=== PATIENT | female | born 1945 | race Caucasian/White ===

== ENCOUNTER 2016-08-12 02:04 | Emergency (ER) | payer MEDICARE, OTHER ==
[~2016-08-12] VITALS: Ht 167.6 cm; Wt 90.1 kg
[~2016-08-12 02:04] MED LIST: ASPI-917 PO; BACL10TA PO; CLID1CAP PO; ESOM20CA PO; HYDR-4074 PO; HYDR1TAB73 PO; LORA-204 PO; METO50TA5 PO; POLY17PO18 PO; PROP28DR BOTH EYES
[2016-08-12 02:05] VITALS: Ht 167.6 cm; Wt 90.1 kg
--- OUTSIDE RECORDS SUMMARY | 2016-08-12 02:09 | XMS REPORT | Referral Summary ---
Author Author [facility] Organization [facility] Address Unknown Phone Unavailable Care Team Providers Care Bit Grinder Name Role Phone Phoebe Lugo Primary Care Physician [phone] Encounter VC Date(s): 02/17/16 - 02/17/16 [facility] [address] [place] [address] Discharge Disposition: 01-Home or Self Care Attending Physician: Kostas Tuttle DO Admitting Physician: Kostas Tuttle DO Vital Signs Most recent to 1 oldest [Reference Range]: Temperature Oral 37.0 degC [35.8-37.3 degC] (02/17/16 3:13 PM) Peripheral Pulse 84 bpm Rate [60-100 bpm] (02/17/16 3:13 PM) Respiratory Rate 12 br/min [14-20 br/min] *LOW* (02/17/16 3:13 PM) Blood Pressure 157/65 mmHg [90-140/60-90 mmHg] *HI* (02/17/16 3:13 PM) SpO2 94 % (02/17/16 3:13 PM) Problem List Condition Effective Dates Status Health Status Informant Arthritis(Confirmed) Active Benign essential Active hypertension (disorder)(Confirmed ) Bleeding(Confirmed) 1997 Active Cataract, Active senile(Confirmed) Osteoarthrosis(Confi Active rmed) 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 ) Dry eyes(Confirmed) Active Eczema(Confirmed) Active Gastroesophageal Active reflux disease (disorder)(Confirmed ) Hemorrhoids(Confirme Active d) Prediabetes(Confirme Active d) Irritable bowel Active disease(Confirmed) Metaplasia of Active esophagus(Confirmed) Obesity(Confirmed) Active patient Tear film Active insufficiency (disorder)(Confirmed ) Frequent Active PVCs(Confirmed) Allergies, Adverse Reactions, Alerts Substance Reaction Severity Status aspirin Discomfort Medium Active Adverse Reaction codeine Active ibuprofen Active Keflex body aches Medium Active levofloxacin Active sulfamethoxazole Adverse Reaction Medium Active sulfanilamide topical Nausea Active Medications baclofen 10 mg oral tablet 10 mg 1 tabs, Oral, TID, 0 Refill(s) Start Date: 11/06/15 Status: Ordered Carafate 1 g oral tablet 1 g 1 tabs, Oral, QID, # 120 tabs, 0 Refill(s) Start Date: 01/21/16 Status: Ordered chlordiazePOXIDE-clidinium 5 mg-2.5 mg oral capsule See Instructions, TAKE ONE CAPSULE BY MOUTH EVERY 6 HOURS NEEDED, # 30 caps, 11 Refill(s), called to pharmacy (Rx) Start Date: 08/13/15 Status: Ordered HYDROcodone-acetaminophen 5 mg-325 mg oral tablet 1-2 tabs, Oral, q6hr, as needed for pain, # 30 tabs, 0 Refill(s) Start Date: 02/04/16 Status: Ordered metoprolol tartrate 50 mg oral tablet 50 mg 1 tabs, Oral, Daily, PT. MONITORS B/P PRIOR TO TAKING., # 30 tabs, 6 Refill(s), Pharmacy: [facility] #[id number] Start Date: 05/17/15 Status: Ordered NexIUM 20 mg oral delayed release capsule 20 mg 1 caps, Oral, BID, GERD/Heartburn, # 30 caps, 0 Refill(s) Start Date: 09/14/14 Status: Ordered triamcinolone 0.1% topical cream 1 cailin, Topical, TID, rash/itching, # 60 g, 1 Refill(s), Pharmacy: [facility] #[id number] Start Date: 06/19/15 Status: Ordered Results Hematology Most recent to 1 oldest [Reference Range]: WBC [4.8-10.8 10.3 10*3/uL 10*3/uL] (02/17/16 3:26 PM) RBC [4.00-5.20] 3.98 *LOW* (02/17/16 3:26 PM) Hgb [12.0-16.0 11.7 gm/dL gm/dL] *LOW* (02/17/16 3:26 PM) Hct [37.0-47.0 %] 34.5 % *LOW* (02/17/16 3:26 PM) MCV [82.0-99.0 fL] 86.7 fL (02/17/16 3:26 PM) MCH [27.0-32.0 pg] 29.4 pg (02/17/16 3:26 PM) MCHC [32.0-36.0 33.9 gm/dL gm/dL] (02/17/16 3:26 PM) RDW [11.5-14.5 %] 12.4 % (02/17/16 3:26 PM) Platelet [150-400 327 10*3/uL 10*3/uL] (02/17/16 3:26 PM) MPV [9.4-12.4 fL] 9.5 fL (02/17/16 3:26 PM) Immature 0.2 % Granulocytes (02/17/16 3:26 PM) [0.0-1.0 %] Neutrophils [51-75 69 % %] (02/17/16 3:26 PM) Lymphocytes [20-46 15 % %] *LOW* (02/17/16 3:26 PM) Monocytes [4-11 %] 14 % *HI* (02/17/16 3:26 PM) Eosinophils [0-4 %] 2 % (02/17/16 3:26 PM) Basophils [0-2 %] 0 % (02/17/16 3:26 PM) Neutro Absolute 7.06 10*3 [1.90-7.00 10*3] *HI* (02/17/16 3:26 PM) Lymph Absolute 1.55 10*3 [0.80-3.30 10*3] (02/17/16 3:26 PM) Mcnairy Absolute 1.45 10*3 [0.30-1.00 10*3] *HI* (02/17/16 3:26 PM) Eos Absolute 0.20 10*3 [0.00-0.50 10*3] (02/17/16 3:26 PM) Baso Absolute 0.03 10*3 [0.00-0.20 10*3] (02/17/16 3:26 PM) Chemistry Most recent to 1 oldest [Reference Range]: Sodium Lvl [136-144 136 mEq/L mEq/L] (02/17/16 3:26 PM) Potassium Lvl 3.5 mEq/L [3.6-5.1 mEq/L] *LOW* (02/17/16 3:26 PM) Chloride [99-109 99 mEq/L mEq/L] (02/17/16 3:26 PM) CO2 [22-32 mEq/L] 28 mEq/L (02/17/16 3:26 PM) AGAP [3-20] 9 (02/17/16 3:26 PM) BUN [4-20 mg/dL] 13 mg/dL (02/17/16 3:26 PM) Glucose Lvl [70-100 128 mg/dL mg/dL] *HI* (02/17/16 3:26 PM) Creatinine Lvl 0.74 mg/dL [0.44-1.03 mg/dL] (02/17/16 3:26 PM) eGFR [>60] >60 1 (02/17/16 3:26 PM) Calcium Lvl 9.0 mg/dL [8.6-10.0 mg/dL] (02/17/16 3:26 PM) Albumin Lvl [3.5-4.8 3.7 gm/dL gm/dL] (02/17/16 3:26 PM) Total Protein 6.3 gm/dL [6.1-7.9 gm/dL] (02/17/16 3:26 PM) Globulin [1.9-4.3 2.6 gm/dL gm/dL] (02/17/16 3:26 PM) ALT [14-54 U/L] 29 U/L (02/17/16 3:26 PM) AST [15-41 U/L] 25 U/L (02/17/16 3:26 PM) Alk Phos [26-104 77 U/L U/L] (02/17/16 3:26 PM) Bili Total [0.2-1.2 0.4 mg/dL 2 mg/dL] (02/17/16 3:26 PM) 1Result Comment: Multiply eGFR results by 1.21 for race. 2Result Comment: Naproxen, specifically the metabolite O-desmethylnaproxen, may cause spurious elevation in Total Bilirubin levels. Immunizations Vaccine Date Refusal Reason tetanus/diphth/pertuss (Tdap) adult/adol 01/09/06 influenza virus vaccine, inactivated 02/09/15 pneumococcal 13-valent conjugate vaccine 03/27/15 Procedures Procedure Date Related Diagnosis Body Site Esophagogastroduodenoscopy and biopsy1 12/27/15 Esophagogastroduodenoscopy and biopsy 08/22/13 Esophagogastroduodenoscopy2 2012 Esophagogastroduodenoscopy3 2011 Colonoscopy4 11/16/08 Esophagogastroduodenoscopy5 11/16/08 Esophagogastroduodenoscopy 2007 Diane fundoplication 04/20/98 Hernia repair 1998 Diane fundoplication 1998 ERIKA - Total abdominal hysterectomy and 1997 bilateral salpingo-oophorectomy Cholecystectomy-laparoscopic Hip replacement Hip replacement Knee replacement Knee replacement Laparoscopic cholecystectomy Tonsillectomy Tonsillectomy 1PATHOLOGY RESULTS SHOWING NEGATIVE FOR ADARSH ASSAY AND H PYLORI. PATIENT WAS POSITIVE FOR KEMP'S WITH OUT DYSPLASIA. TP NEEDS TO REPEAT EGD IN 3 YRS. 2DONE [id number] [facility] [place] [facility] [place] [facility] [place] [facility] [place] Social History Social History Type Response Smoking Status Former smoker Assessment and Plan No data available for this section
--- OUTSIDE RECORDS SUMMARY | 2016-08-12 02:10 | XMS REPORT | Referral Summary ---
Author Author [facility] Organization [facility] Address Unknown Phone Unavailable Care Team Providers Care Big Data Analytics Lead Name Role Phone Phoebe Lugo Primary Care Physician [phone] Encounter VC Date(s): 03/27/16 - 03/27/16 [facility] [address] [place] [address] Discharge Diagnosis: Gastroesophageal reflux disease (disorder) Discharge Diagnosis: Status post left knee replacement Discharge Diagnosis: Osteoarthrosis Discharge Diagnosis: Benign essential hypertension (disorder) Discharge Disposition: 01-Home or Self Care Attending Physician: Mumtaz Lugo MD Admitting Physician: Mumtaz Lugo MD Vital Signs Most recent to 1 oldest [Reference Range]: Temperature Tympanic 36.6 degC [36.6-38.1 degC] (03/27/16 2:33 PM) Peripheral Pulse 68 bpm Rate [60-100 bpm] (03/27/16 2:33 PM) Respiratory Rate 16 br/min [14-20 br/min] (03/27/16 2:33 PM) Blood Pressure 136/62 mmHg [90-140/60-90 mmHg] (03/27/16 2:33 PM) Problem List Condition Effective Dates Status [...] Medium Active sulfanilamide topical Nausea Active Medications chlordiazePOXIDE-clidinium 5 mg-2.5 mg oral capsule See Instructions, TAKE ONE CAPSULE BY MOUTH EVERY 6 HOURS NEEDED, # 30 caps, 11 Refill(s), called to pharmacy (Rx) Start Date: 08/13/15 Status: Ordered chlorzoxazone 500 mg oral tablet See Instructions, TAKE ONE TABLET BY MOUTH EVERY NIGHT AT BEDTIME, # 30 tabs, eRx: [facility] #[id number], TAKE ONE TABLET BY MOUTH EVERY NIGHT AT BEDTIME Start Date: 03/07/16 Status: Ordered HYDROcodone-acetaminophen 5 mg-325 mg oral tablet 1-2 tabs, Oral, q6hr, as needed for pain, # 30 tabs, 0 Refill(s) Start Date: 02/04/16 Status: Ordered metoprolol tartrate 50 mg oral tablet 50 mg 1 tabs, Oral, Daily, PT. MONITORS B/P PRIOR TO TAKING., # 30 tabs, 6 Refill(s), Pharmacy: [facility] #[id number] Start Date: 05/17/15 Status: Ordered NexIUM 20 mg oral delayed release capsule 20 mg 1 caps, Oral, BID, GERD/Heartburn, # 30 caps, 0 Refill(s) Start Date: 09/14/14 Status: Ordered Results No data available for this section Immunizations Vaccine Date Refusal Reason tetanus/diphth/pertuss (Tdap) adult/adol 01/09/06 influenza virus vaccine, inactivated1 01/21/16 influenza virus vaccine, inactivated 02/09/15 pneumococcal 13-valent conjugate vaccine 03/27/15 1Early/Late Reason: Nursing Judgment Procedures Procedure Date Related Diagnosis Body Site Arthroplasty of knee1 02/14/16 Esophagogastroduodenoscopy and biopsy2 12/27/15 Esophagogastroduodenoscopy and biopsy 08/22/13 Esophagogastroduodenoscopy3 2012 Esophagogastroduodenoscopy4 2011 Colonoscopy5 11/16/08 Esophagogastroduodenoscopy6 11/16/08 Esophagogastroduodenoscopy 2007 Diane fundoplication 04/20/98 Hernia repair 1998 Diaen fundoplication 1998 ERIKA - Total abdominal hysterectomy and 1997 bilateral salpingo-oophorectomy Cholecystectomy-laparoscopic Hip replacement Hip replacement Knee replacement Knee replacement Laparoscopic cholecystectomy Tonsillectomy Tonsillectomy 1Left total knee arthroplasty 2PATHOLOGY RESULTS SHOWING NEGATIVE FOR ADARSH ASSAY AND H PYLORI. PATIENT WAS POSITIVE FOR KEMP'S WITH OUT DYSPLASIA. TP NEEDS TO REPEAT EGD IN 3 YRS. [id number] [facility] [place] [facility] [place] [facility] [place] [facility] [place] Social History Social History Type Response Smoking Status Former smoker Assessment and Plan Extracted from: Title: Ambulatory Patient Education Author: Mumtaz uLgo MD Date: 03/27/16 Cardiovascular Hypertension Hypertension is another name for high blood pressure. High blood pressure forces your heart to work harder to pump blood. A blood pressure reading has two numbers, which includes a higher number over a lower number (example: 110/72 ). HOME CARE Have your blood pressure rechecked by your doctor. Only take medicine as told by your doctor. Follow the directions carefully. The medicine does not work as well if you skip doses. Skipping doses also puts you at risk for problems. Do not smoke. Monitor your blood pressure at home as told by your doctor. GET HELP IF: You think you are having a reaction to the medicine you are taking. You have repeat headaches or feel dizzy. You have puffiness (swelling) in your ankles. You have trouble with your vision. GET HELP RIGHT AWAY IF: You get a very bad headache and are confused. You feel weak, numb, or faint. You get chest or belly (abdominal) pain. You throw up (vomit). You cannot breathe very well. MAKE SURE YOU: Understand these instructions. Will watch your condition. Will get help right away if you are not doing well or get worse. This information is not intended to replace advice given to you by your health care provider. Make sure you discuss any questions you have with your health care provider. Document Released: 09/22/2008 Document Revised: 04/11/2014 Document Reviewed: [employer] Interactive Patient Education 2016 [employer] No follow up information was provided. Extracted from: Title: Office Visit Note Author: Mumtaz Lugo MD Date: 03/27/16 Assessment/Plan 1.Benign essential hypertension (disorder) Blood pressure is well controlled. No change in current treatment is recommended. Recheck in 3 months. Fasting lab at that time. Problems or concerns before then she'll let us now. Ordered: Office Visit Level 4 Est 62095 2.Gastroesophageal reflux disease (disorder) Chronic stable no change in current treatment. Ordered: Office Visit Level 4 Est 95003 3.Osteoarthrosis Chronic relatively stabledoing well post knee replacement no change in current treatment. Ordered: Office Visit Level 4 Est 90737 4.Status post left knee replacement Continue physical therapy and follow- up with Dr. Redmond. Ordered: Office Visit Level 4 Est 47105
--- OUTSIDE RECORDS SUMMARY | 2016-08-12 02:10 | XMS REPORT | Referral Summary ---
Author Author [facility] Organization [facility] Address Unknown Phone Unavailable Care Team Providers Care Assistant Plant Controller Name Role Phone Phoebe Lugo Primary Care Physician [phone] Encounter VC Date(s): 04/24/16 - 04/24/16 [facility] [address] [place] [address] Discharge Diagnosis: Dizziness Discharge Diagnosis: Elevated glucose Discharge Diagnosis: Benign essential hypertension (disorder) Discharge Disposition: 01-Home or Self Care Attending Physician: Mumtaz Lugo MD Admitting Physician: Mumtaz Lugo MD Vital Signs Most recent to 1 oldest [Reference Range]: Temperature Tympanic 36.3 degC [36.6-38.1 degC] *LOW* (04/24/16 9:57 AM) Peripheral Pulse 76 bpm Rate [60-100 bpm] (04/24/16 9:57 AM) Respiratory Rate 16 br/min [14-20 br/min] (04/24/16 9:57 AM) Blood Pressure 122/70 mmHg [90-140/60-90 mmHg] (04/24/16 9:57 AM) Problem List Condition Effective Dates Status Health [...] EVERY NIGHT AT BEDTIME, # 30 tabs, 1 Refill(s), eRx: [facility] #[id number], TAKE ONE TABLET BY MOUTH EVERY NIGHT AT BEDTIME Start Date: 04/08/16 Status: Ordered cinnamon 500 mg oral capsule 1,000 mg 2 caps, Oral, as needed for elevated blood sugar, # 100 caps, 0 Refill( s) Start Date: 04/24/16 Status: Ordered HYDROcodone-acetaminophen 5 mg-325 mg oral tablet 1-2 tabs, Oral, q6hr, as needed for pain, # 30 tabs, 0 Refill(s) Start Date: 02/04/16 Status: Ordered metoprolol tartrate 50 mg oral tablet 50 mg 1 tabs, Oral, Daily, PT. MONITORS B/P PRIOR TO TAKING., # 30 tabs, 6 Refill(s), Pharmacy: [facility] #[id number] Start Date: 05/17/15 Status: Ordered NexIUM 20 mg oral delayed release capsule 20 mg 1 caps, Oral, BID, GERD/Heartburn, # 30 caps, 0 Refill(s) Start Date: 09/14/14 Status: Ordered Results Chemistry Most recent to 1 oldest [Reference Range]: Sodium Lvl [135-144 140 mEq/L mEq/L] (04/24/16 10:37 AM) Potassium Lvl 4.5 mEq/L [3.5-5.2 mEq/L] (04/24/16 10:37 AM) Chloride [99-111 105 mEq/L mEq/L] (04/24/16 10:37 AM) CO2 [22-31 mEq/L] 25 mEq/L (04/24/16 10:37 AM) AGAP [3-20] 10 (04/24/16 10:37 AM) BUN [10-20 mg/dL] 15 mg/dL (04/24/16 10:37 AM) Glucose Lvl [70-99 95 mg/dL mg/dL] (04/24/16 10:37 AM) Creatinine Lvl 0.69 mg/dL [0.57-1.11 mg/dL] (04/24/16 10:37 AM) eGFR [>60 mL/min] >60 mL/min 1 (04/24/16 10:37 AM) Calcium Lvl 9.3 mg/dL [8.9-10.5 mg/dL] (04/24/16 10:37 AM) Albumin Lvl [3.4-4.8 4.2 gm/dL gm/dL] (04/24/16 10:37 AM) Total Protein 6.4 gm/dL [6.0-7.6 gm/dL] (04/24/16 10:37 AM) Globulin [1.8-4.0 2.2 gm/dL gm/dL] (04/24/16 10:37 AM) ALT [0-55 U/L] 18 U/L (04/24/16 10:37 AM) AST [5-34 U/L] 16 U/L (04/24/16 10:37 AM) Alk Phos [40-150 104 U/L U/L] (04/24/16 10:37 AM) Bili Total [0.2-1.2 0.3 mg/dL mg/dL] (04/24/16 10:37 AM) TSH with Reflex Free 0.78 T4 [0.35-4.94] (04/24/16 10:37 AM) Hgb A1c [4.1-5.6 %] 5.4 % (04/24/16 10:37 AM) eAvg Glucose 108.3 mg/dL (04/24/16 10:37 AM) 1Result Comment: Multiply eGFR results by 1.21 for race. Immunizations Given and Recorded Vaccine Date Status Refusal Reason tetanus/diphth/pertuss (Tdap) adult/adol 01/09/06 Recorded influenza virus vaccine, inactivated1 01/21/16 Given influenza virus vaccine, inactivated 02/09/15 Given pneumococcal 13-valent conjugate vaccine 03/27/15 Given 1Early/Late Reason: Nursing Judgment Procedures Procedure Date [...] TO REPEAT EGD IN 3 YRS. 3DONE [id number] @ [facility] [place]-2011 @ [facility] [place]. [place] [facility] [place] [facility] [place] Social History Social History Type Response Smoking Status Former smoker Assessment and Plan Extracted from: Title: Ambulatory Patient Education Author: Mumtaz Lugo MD Date: Preventive Medicine Screening for Type 2 Diabetes Screening is a way to check for type 2 diabetes in people who do not have symptoms of the disease, but who may likely develop diabetes in the future. Diabetes can lead to serious health problems, but finding diabetes early allows for early treatment. DIABETES RISK FACTORS Family history of diabetes. Diseases of the pancreas. Obesity or being overweight. Certain racial or ethnic groups: . . . . . High blood pressure (hypertension). History of diabetes while (gestational diabetes). Delivering a baby that weighed over 9 pounds. Being inactive. High cholesterol or triglycerides. Age, especially over 45 years of age. Other diseases or conditions. Diseases of the pancreas. Cardiovascular disease. Disorders of the endocrine system. Certain medicines, such as those that treat high blood cholesterol levels. WHO IS SCREENED Adults Adults who have no risk factors and no symptoms should be screened starting at age 45. If the screening tests are normal, they should be repeated every 3 years. Adults who do not have symptoms, but have 1 or more risk factors, should be screened. Adults who have 2 or more risk factors may be screened every year. Adults who have an A1c (3 month average of blood glucose) greater than 5.7% or who had an impaired glucose tolerance (IGT) or impaired fasting glucose (IFG) on a previous test should be screened. women who have risk factors should be screened at their first visit. Women who have given and had gestational diabetes should be screened 612 weeks after the child is born. This screening should be repeated every 13 years after the first test. Children or Adolescents Children and adolescents should be screened for type 2 diabetes if they are overweight and have 2 of the following risk factors: Having a family history of type 2 diabetes. Being a member of a high risk race or ethnic group. Having signs of insulin resistance or conditions associated with insulin resistance. Having a mother who had gestational diabetes while with him or her. Screening should start at age 10 or at the onset of puberty, whichever comes first. This should be repeated every 2 years. SCREENING In a screening, your caregiver may: Ask questions about your overall health. This will include questions about the health of close family members, too. Ask about any diabetes-like symptoms you may have. Perform a physical exam. Order some tests that may include: A fasting plasma glucose test. This measures the level of glucose in your blood. It is done after you have had nothing to eat but water (fasted) for 8 hours. A random blood glucose test. This test is done without the need to fast. An oral glucose tolerance test. This is a blood test done in 2 parts. First, a blood sample is taken after you have fasted. Then, another sample is taken after you drink a liquid that contains a lot of sugar. An A1c test. This test shows how much glucose has been in your blood over the past 2 to 3 months. This information is not intended to replace advice given to you by your health care provider. Make sure you discuss any questions you have with your health care provider. Document Released: 01/31/2010 Document Revised: 04/27/2015 Document Reviewed: [employer] Interactive Patient Education 2016 [employer] No follow up information was provided. Extracted from: Title: Office Visit Note Author: Mumtaz Lugo MD Date: 04/24/16 Assessment/Plan 1.Dizziness Ordered: Comprehensive Metabolic Panel Office Visit Level 3 Est 30119 TSH with Reflex Free T4 2.Benign essential hypertension (disorder) Ordered: Comprehensive Metabolic Panel Office Visit Level 3 Est 18745 3.Elevated glucose Ordered: Comprehensive Metabolic Panel Hemoglobin A1c Office Visit Level 3 Est 94420
--- OUTSIDE RECORDS SUMMARY | 2016-08-12 02:10 | XMS REPORT | Referral Summary ---
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 Discharge Diagnosis: Benign essential hypertension (disorder) Discharge Diagnosis: Gastroesophageal reflux disease (disorder) Discharge Disposition: 01-Home or Self Care Attending Physician: Mumtaz Lugo MD Admitting Physician: Mumtaz Lugo MD Vital Signs Most recent to 1 oldest [Reference Range]: Temperature Tympanic 36.8 degC [36.6-38.1 degC] (01/21/16 9:21 AM) Peripheral Pulse 68 bpm Rate [60-100 bpm] (01/21/16 9:21 AM) Respiratory Rate 16 br/min [14-20 br/min] (01/21/16 9:21 AM) Blood Pressure 134/78 mmHg [90-140/60-90 mmHg] (01/21/16 9:21 AM) Problem List Condition Effective Dates Status [...] # 30 tabs, 0 Refill(s) Start Date: 11/19/15 Status: Ordered metoprolol tartrate 50 mg oral tablet 50 mg 1 tabs, Oral, Daily, PT. MONITORS B/P PRIOR TO TAKING., # 30 tabs, 6 Refill(s), Pharmacy: [facility] #[id number] Start Date: 05/17/15 Status: Ordered NexIUM 20 mg oral delayed release capsule 20 mg 1 caps, Oral, BID, GERD/Heartburn, # 30 caps, 0 Refill(s) Start Date: 09/14/14 Status: Ordered triamcinolone 0.1% topical cream 1 cailin, Topical, TID, rash/itching, # 60 g, 1 Refill(s), Pharmacy: [facility] #[id number] Start Date: 06/19/15 Status: Ordered Results Hematology Most recent to 1 oldest [Reference Range]: WBC [4.8-10.8 6.9 10*3/uL 10*3/uL] (01/21/16 10:00 AM) RBC [4.00-5.20] 4.41 (01/21/16 10:00 AM) Hgb [12.0-16.0 13.0 gm/dL gm/dL] (01/21/16 10:00 AM) Hct [37.0-47.0 %] 38.9 % (01/21/16 10:00 AM) MCV [82.0-99.0 fL] 88.2 fL (01/21/16 10:00 AM) MCH [27.0-32.0 pg] 29.5 pg (01/21/16 10:00 AM) MCHC [32.0-36.0 33.4 gm/dL gm/dL] (01/21/16 10:00 AM) RDW [11.5-14.5 %] 12.5 % (01/21/16 10:00 AM) Platelet [150-400 312 10*3/uL 10*3/uL] (01/21/16 10:00 AM) MPV [8.8-14.8 fL] 10.6 fL (01/21/16 10:00 AM) Immature 0.3 % Granulocytes (01/21/16 10:00 AM) [0.0-1.0 %] Neutrophils [51-75 58 % %] (01/21/16 10:00 AM) Lymphocytes [20-46 27 % %] (01/21/16 10:00 AM) Monocytes [4-11 %] 11 % (01/21/16 10:00 AM) Eosinophils [0-4 %] 4 % (01/21/16 10:00 AM) Basophils [0-2 %] 1 % (01/21/16 10:00 AM) Neutro Absolute 4.00 10*3 [1.90-7.00 10*3] (01/21/16 10:00 AM) Lymph Absolute 1.84 10*3 [0.80-3.30 10*3] (01/21/16 10:00 AM) [place] Absolute 0.76 10*3 [0.30-1.00 10*3] (01/21/16 10:00 AM) Eos Absolute 0.26 10*3 [0.00-0.50 10*3] (01/21/16 10:00 AM) Baso Absolute 0.04 10*3 [0.00-0.20 10*3] (01/21/16 10:00 AM) Chemistry Most recent to 1 oldest [Reference Range]: Sodium Lvl [135-144 138 mEq/L mEq/L] (01/21/16 10:00 AM) Potassium Lvl 4.2 mEq/L [3.5-5.2 mEq/L] (01/21/16 10:00 AM) Chloride [99-111 103 mEq/L mEq/L] (01/21/16 10:00 AM) CO2 [22-31 mEq/L] 26 mEq/L (01/21/16 10:00 AM) AGAP [3-20] 9 (01/21/16 10:00 AM) BUN [10-20 mg/dL] 13 mg/dL (01/21/16 10:00 AM) Glucose Lvl [70-99 96 mg/dL mg/dL] (01/21/16 10:00 AM) Creatinine Lvl 0.76 mg/dL [0.57-1.11 mg/dL] (01/21/16 10:00 AM) eGFR [>60 mL/min] >60 mL/min 1 (01/21/16 10:00 AM) Calcium Lvl 9.1 mg/dL [8.9-10.5 mg/dL] (01/21/16 10:00 AM) Albumin Lvl [3.4-4.8 4.3 gm/dL gm/dL] (01/21/16 10:00 AM) Total Protein 6.2 gm/dL [6.0-7.6 gm/dL] (01/21/16 10:00 AM) Globulin [1.8-4.0 1.9 gm/dL gm/dL] (01/21/16 10:00 AM) ALT [0-55 U/L] 26 U/L (01/21/16 10:00 AM) AST [5-34 U/L] 19 U/L (01/21/16 10:00 AM) Alk Phos [40-150 89 U/L U/L] (01/21/16 10:00 AM) Bili Total [0.2-1.2 0.4 mg/dL mg/dL] (01/21/16 10:00 AM) 1Result Comment: Multiply eGFR results by 1.21 for race. Immunizations Vaccine Date Refusal Reason tetanus/diphth/pertuss (Tdap) [...] TO REPEAT EGD IN 3 YRS. 2DONE [id number] @ [facility] 3DONE 08-22-2011 @ [facility]. 4DONE @ [facility] 5DONE @ [facility] Social History Social History Type Response Smoking Status Former smoker Assessment and Plan Extracted from: Title: Ambulatory Patient Education Author: Mumtaz Lugo MD Date: 01/21/16 Family Medicine Food Choices for Gastroesophageal Reflux Disease, Adult When you have gastroesophageal reflux disease (GERD), the foods you eat and your eating habits are very important. Choosing the right foods can help ease the discomfort of GERD. WHAT GENERAL GUIDELINES DO I NEED TO FOLLOW? Choose fruits, vegetables, whole grains, low-fat dairy products, and low- fat meat, fish, and poultry. Limit fats such as oils, salad dressings, butter, nuts, and avocado. Keep a food diary to identify foods that cause symptoms. Avoid foods that cause reflux. These may be different for different people. Eat frequent small meals instead of three large meals each day. Eat your meals slowly, in a relaxed setting. Limit fried foods. Cook foods using methods other than frying. Avoid drinking alcohol. Avoid drinking large amounts of liquids with your meals. Avoid bending over or lying down until 23 hours after eating. WHAT FOODS ARE NOT RECOMMENDED? The following are some foods and drinks that may worsen your symptoms: Vegetables Tomatoes. Tomato juice. Tomato and spaghetti sauce. Kipton peppers. Onion and garlic. Horseradish. Fruits Oranges, grapefruit, and lemon (fruit and juice). Meats High-fat meats, fish, and poultry. This includes hot dogs, ribs, ham, sausage, salami, and brown. Dairy Whole milk and chocolate milk. Sour cream. Cream. Butter. Ice cream. Cream cheese. Beverages Coffee and tea, with or without caffeine. Carbonated beverages or energy drinks. Condiments Hot sauce. Barbecue sauce. Sweets/Desserts Chocolate and cocoa. Donuts. Peppermint and spearmint. Fats and Oils High-fat foods, including Nigerien fries and potato chips. Other Vinegar. Strong spices, such as black pepper, white pepper, red pepper, cayenne , mackay powder, cloves, laurent, and chili powder. The items listed above may not be a complete list of foods and beverages to avoid. Contact your dietitian for more information. This information is not intended to replace advice given to you by your health care provider. Make sure you discuss any questions you have with your health care provider. Document Released: 04/06/2006 Document Revised: 04/27/2015 Document Reviewed: [facility] Patient Information 2016 [employer] [facility]. No follow up information was provided. Extracted from: Title: Office Visit Note Author: Mumtaz Lugo MD Date: 01/21/16 Assessment/Plan 1.Benign essential hypertension (disorder) Blood pressure is adequately controlled no change in current treatment is recommended. Ordered: Office Visit Level 4 Est 51659 2.Gastroesophageal reflux disease (disorder) Chronic and stable on current medication changes are recommended. Ordered: Office Visit Level 4 Est 69936 3.Osteoarthrosis As stated above she is scheduled for total knee replacement with Dr. Carter this point she appears medically stable for this intervention. 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 No further interventions at this time. Ordered: Office Visit Level 4 Est 41141 EKG showsno acute abnormality. Laboratory studies and chest x-ray are pending. Overall she appears healthy and stable forsurgical intervention. If findings on lab or x-ray change that recommendationwe will let Dr. Redmond's office know.
--- OUTSIDE RECORDS SUMMARY | 2016-08-12 02:10 | XMS REPORT | Continuity of Care Document ---
Author Author [facility] Organization [facility] Address Unknown Phone Unavailable Allergies Medications Problems Procedures Results Encounters ACCT No. Visit Date/Time Discharge Status Pt. Type Provider Facility Loc./Unit Complaint [id number] 07/21/2013 14:13:00 07/21/2013 23 :59:59 CLS Outpatient [id number] 06/20/2013 11:14:00 06/20/2013 23 :59:59 CLS Outpatient [id number] 03/29/2013 11:08:00 03/29/2013 23 :59:59 CLS Outpatient
--- OUTSIDE RECORDS SUMMARY | 2016-08-12 02:11 | XMS REPORT | Continuity of Care Document ---
Author Author [facility] Organization [facility] Address Unknown Phone Unavailable Support Name Relationship Address Phone HIGINIO MURILLO MD Caregiver [address] [place] [address] Unavailable HIGINIO MURILLO MD Caregiver [address] [place] [address] Unavailable DELORIS GARLAND MD Caregiver [address] [place] [address] Unavailable PRICILLA CASAREZ Next Of Kin [address] [place] [address] Insurance Providers Guarantor Matt Cronin Address [address] [place] [address] Email [email or web address] Payer Medicare Policy Number [id number] Subscriber's Name Matt Cronin Relationship 18 Self Payer [facility] Policy Number [id number] Subscriber's Name Matt Cronin Relationship 18 Self Advance Directives Directive Response Recorded Date/Time Ordered Resuscitation Status Full Code 08/19/13 5:46pm Resuscitation Documents on File No 02/14/16 2:50pm DPOA for Healthcare Only Yes 02/14/16 2:50pm Living Will Yes 02/14/16 2:50pm Problems Active Problems Medical Problem Onset Date Status Corneal abrasion Unknown Acute Degenerative arthritis of left knee Unknown Chronic Eye Pain Unknown Acute Frequent PVCs Unknown GERD (gastroesophageal reflux disease) Unknown Hypertension Unknown Obesity (BMI 30-39.9) Unknown Pre-diabetes Unknown Past Problems Medical Problem Onset Date Abdominal pain Unknown Abdominal pain Unknown Contusion of nose Unknown Minor head injury Unknown Minor head injury Unknown Muscle cramps Unknown Myalgia Unknown Palpitations Unknown Shingles Unknown Shingles Unknown Strain of left knee Unknown Superficial laceration Unknown Medications Current Home Medications Medication Dose Units Route Directions Days Qty Instructions Start Date Aspirin (Aspirin Ec) 325 Mg Tablet. 325 Mg Oral Twice A Day 42 Days 84 Tablet 02/15/16 Baclofen 10 Mg Tablet 0.5-1 Tab Oral Three Times A Day as needed for Muscle Cramps 01/23/16 Clidinium Br/Chlordiazepoxide (Librax 5/2.5MG) 1 Cap Capsule 1 Cap Oral Daily as needed for Acid Reflux 10/24/13 Esomeprazole Mag Trihydrate (Nexium) 20 Mg Capsule 20 Mg Oral Daily as needed for Acid Reflux 05/13/15 Hydrocodone Bit/Acetaminophen (Lortab 5) 1 Tab Tablet 0.5 Tab Oral Every 6 Hr Prn as needed for Pain 08/22/13 Hydrocodone/Apap 7.5/325 Mg ([place] 7.5-325 Tablet) 7.5-325 Tablet 1-2 Tab Oral Every 6 Hours as needed for Pain 60 Tablet 02/16/16 Lorazepam (Ativan) 1 Mg Tablet 1 Mg Oral Every 8 Hours as needed for Spasms & Anxiety 15 Tablet 02/16/16 Metoprolol Tartrate 50 Mg Tablet 50 Mg Oral Give With Breakfast MONITORS BP PRIOR TO TAKING 01/23/16 Polyethylene Glycol 3350 (Healthylax) 17 Gm Powd.pack 17 Gm Oral Daily 30 Packet 02/15/16 Propylene Glycol/Peg 400 (Systane 0.3-0.4% Eye Drops) 4 Drop/0.4 Ml Solution 1 Drop Both Eyes Twice A Day as needed for Dry Eyes 10/02/14 Past Home Medications Medication Directions Ordered Status Altmariella , 06/24/09 Discontinued Amitriptyline Hcl 10 Mg Tablet, 5 Mg Oral Bedtime 08/07/09 Discontinued Ascorbic Acid (Vitamin C) 1,000 Mg Tablet, 1000 Mg Oral Daily 08/13/12 Discontinued Calcium Carbonate (Calcium) 600 Mg Tablet, 600 Mg Oral Daily 08/21/11 Discontinued Calcium Carbonate/Vitamin D3 (Vitamin D-3 400 Units Tablet) 1 Tab Tablet, 1 Tab Oral Daily 08/21/11 Discontinued Chlorzoxazone (Parafon Forte Dsc) 500 Mg Tablet, 08/07/09 Discontinued Cyclobenzaprine Hcl (Flexeril) 10 Mg Tablet, 10 Mg Oral As Needed 07/02/09 Discontinued Esomeprazole Mag Trihydrate (Nexium) 40 Mg Capsule., 1 Daily 08/07/09 Discontinued Fexofenadine Hcl (Jenny) 60 Mg Tablet, 60 Mg Oral Daily 01/13/11 Discontinued Fexofenadine Hcl (Jenny) 60 Mg Tablet, As Needed 08/07/09 Discontinued Fexofenadine Hcl (Jenny) 60 Mg Tablet, 60 Mg Oral Twice A Day 11/15/08 Discontinued Fish Oil/[place]-3 Fatty Acids ([place] 3 Fish Oil 1,000 Mg Cap) 1 Cap Capsule, 1 Cap Oral Daily 08/21/11 Discontinued Fish Oil/[place]-3 Fatty Acids ([place] 3 Fish Oil 1,000 Mg Cap) 1 Cap Capsule, 1 Cap Oral Twice A Day 08/07/09 Discontinued Omeprazole (Prilosec) 40 Mg Capsule.dr, 40 Mg Oral Daily 08/21/11 Discontinued Ramipril (Altace) 5 Mg Capsule, 5 Mg Oral Daily 09/09/10 Discontinued Ramipril (Altace) 1.25 Mg Tablet, 08/07/09 Discontinued Spironolactone (Aldactone) 25 Mg Tablet, 12.5 07/02/09 Discontinued Sucralfate (Carafate) 1 G Tablet, 1 G Oral Four Times Daily 11/15/08 Discontinued Social History Social History Problem Response Recorded Date/Time Onset Date Status Reason for Hospitalization TKA 02/16/2016 5:16pm Not Applicable Not Applicable Chewing Tobacco Status No 10/24/2013 11:25pm Not Applicable Not Applicable Hx Substance Use No 02/14/2016 8:47am Not Applicable Not Applicable Hx Alcohol Use No 02/14/2016 8:47am Not Applicable Not Applicable Has the pt used tobacco in the last 12 months No 02/14/2016 8:47am Not Applicable Not Applicable Tobacco Usage none 10/24/2013 10:58pm Not Applicable Not Applicable Query Response Start Date Stop Date Smoking Status Never smoker Hospital Discharge Instructions Instructions: Care Instructions: Reason for Hospitalization: TKA I was in the hospital because (patient own words): TO KNEE Discharge Diet: Resume normal diet as tolerated Discharge Activity: Continue the exercises you were given in the hospital three times a day. Your therapist will provide you with a home therapy program prior to your hospital discharge. As you feel stronger, increase the number of repetitions you do in each session. Please check with us before you swim, use a whirlpool, drive or ride a bicycle. Follow Up Appointments: Follow up as scheduled Pending Lab / Results: No Pending Lab Patient Instructions: Driving may be resumed once you are no longer taking narcotic medications and feel you can safely operate the vehicle. You may wish to practice in an empty parking lot at first. Keep in mind that your reaction time will be delayed for up to 6 weeks after surgery. Contact your surgeon for antibiotics to take before having dental work. Wound/Incision Care: In most cases, a Mepilex dressing will be placed at the time of surgery. This dressing will not need to be covered while showering. Leave dressing in place until your follow-up appointment as long as it remains clean, dry and stuck down well around the edges. Call your Doctor if you encounter a problem with your dressing. Please avoid submerging your incision until it is completely healed, once the Mepilex dressing is removed. This includes bathtubs, swimming pools, and hot tubs. DO NOT USE ALCOHOL, PEROXIDE, OR OINTMENTS of any kind on your incision. Pain Scale Utilized to Educate Patient: 0-10 Pain Scale Pain Management/Treatment: Ice packs may be used, and will also help with the pain. You will be given a prescription for pain. Expected Signs/Symptoms: Some swelling around the incision, as well as in your feet and legs is normal. To help with this, elevate your feet on a footstool when sitting in a chair, and do the ankle pumps and circles whenever you are sitting still. Muscle action helps to move collected fluid out of the tissues and improve circulation. Ice packs may be used, and will also help with the pain. Report any persistent swelling, calf tenderness, increase in pain, or pain in the calf with warmth, or redness to your doctor. Notify Physician If: Report any complications to my office immmediately. This includes excessive bleeding, wound breakdown, redness around the wound, uncontrolled pain, or fever over 101 on 3 different measurements. Eat a balanced diet and get plenty of rest. During Business Hours:: If you have any questions or concerns, please call during regular office hours ([phone]). After Business Hours:: If you have any problems or need to reach a physician after hours or on the weekend please call the hospital's main number [phone] to have your physician paged. Condition at time of discharge: Good Plan of Care Discharge Date 02/16/16 5:33pm Disposition 01 DISCHARGED HOME, SELF-CARE Instructions/Education Provided [facility] Postop Instructions Prescriptions See Medication Section Additional Instructions/Education POST OP APT WITH DR MURILLO ON 03-10-16 AT 1: 00 PM Care Plan and Goals See Discharge Instructions Section Functional Status Query Response Date Recorded Mobility Status Ambulatory w/assist February 16, 2016 5:16pm Assistive Devices Front Wheeled Walker February 16, 2016 5:16pm Activity Limitations Pain February 16, 2016 5:16pm Feeding Ability Independent February 16, 2016 5:16pm Toileting Ability Independent February 16, 2016 5:16pm Grooming Ability Independent February 16, 2016 5:16pm Dressing Ability Independent February 16, 2016 5:16pm Driving Ability Independent February 16, 2016 5:16pm Housework Ability Independent February 16, 2016 5:16pm Meal Preparation Ability Independent February 16, 2016 5:16pm Stair Climbing Ability Independent February 16, 2016 5:16pm Ability to complete ADL's impeded by Impaired Mobility No change February 16, 2016 5:16pm Cognitive/Perceptual Impairments Impaired vision February 16, 2016 5:16pm Visual Assistive Devices Glasses With patient February 14, 2016 2:48pm Preferred Method of Learning Hands on February 14, 2016 2:48pm Allergies, Adverse Reactions, Alerts Allergen Type Severity Reaction Status Last Updated NSAIDS (Non-Steroidal Anti-Inflamma Adverse Reaction Unknown HISTORY OF STOMACH LESIONS Active 10/02/14 Sulfa (Sulfonamide Antibiotics) Adverse Reaction Unknown N/V, BODY ACHES Active 01/23/16 Codeine Allergy Unknown CHEST PAIN Active 05/13/15 Aspirin Adverse Reaction Mild hx ulcers Active 05/13/15 Ibuprofen Adverse Reaction Intermediate LEG SWELLING Active 01/23/16 Cephalexin Adverse Reaction Unknown BODY ACHES PER H&P Active 02/07/16 Pantoprazole Adverse Reaction Unknown HURTS HER STOMACH Active 10/02/14 Levofloxacin Adverse Reaction Unknown N/V Active 01/23/16 Immunizations Query Response on File Recorded Date/Time Hx Influenza Vaccination Y 02-0202/14/16 8:47am Hx Pneumococcal Vaccination Y 02/0102/14/16 8:47am Hx Tetanus, Diptheria, Pertussis NO SKIN DISRUPTIONS 01/14/15 8:49am Hx Influenza Vaccination Y 02-0202/14/16 8:47am Hx Tetanus Diptheria N MORE THAN 10 YEARS 01/14/15 8:49am Hx Tetanus, Diptheria, Pertussis NO SKIN DISRUPTIONS 01/14/15 8:49am Influenza Vaccine Hx 01/23/2016 02/15/16 12:22pm Vital Signs Acute Vital Signs Vital Response Date/Time Temperature (Fahrenheit) 98.1 deg F (96.8 - 99.1) 02/16/2016 4:00pm Temperature (Calculated Celsius) 36.13237 degrees C (36.0 - 37.3) 02/16/2016 4:00pm Temperature Source Oral 02/16/2016 4:00pm Pulse Rate (adult) 80 bpm (60 - 100) 02/16/2016 4:00pm Respiratory Rate 18 breaths/min (10 - 20) 02/16/2016 4:00pm O2 Sat by Pulse Oximetry 97 % (90 - 100) 02/16/2016 4:00pm Oxygen Delivery Method Room Air 02/16/2016 4:00pm Oxygen Delivery Method Room Air 02/14/2016 7:13pm Blood Pressure 147/74 mm Hg 02/16/2016 4:00pm Blood Pressure Source Automatic Cuff 02/16/2016 4:00pm Height (Feet) 5 feet 02/16/2016 10:03am Height (Inches) 6.00 inches 02/16/2016 10:03am Weight (Kilograms) 98.900 kg 02/15/2016 1:11pm Body Mass Index (BMI) 33.7 02/14/2016 8:18am Results Laboratory Results Test Name Result Units Flags Reference Collection Date/Time Result Date/ Time Comments White Blood Count 9.8 T/MM3 4.5-11.0 02/16/2016 4:32am 02/16/2016 5: 13am Red Blood Count 3.85 M/MM3 L 4.00-5.20 02/16/2016 4:32am 02/16/2016 5: 13am Hemoglobin 11.2 GM/DL L 12-16 02/16/2016 4:32am 02/16/2016 5:13am Hematocrit 34.2 % L 36-46 02/16/2016 4:32am 02/16/2016 5:13am Mean Corpuscular Volume 88.8 UM3 80-100 02/16/2016 4:32am 02/16/2016 5: 13am Mean Corpuscular Hemoglobin 29.1 UUG 26-34 02/16/2016 4:32am 2015 5:13am Mean Corpuscular Hemoglobin Concent 32.7 GM/DL 31-37 02/16/2016 4:32am 02/16/2016 5:13am RDW Standard Deviation 39.8 FL 36.9-50.2 02/16/2016 4:32am 02/16/2016 5 :13am Platelet Count 255 T/MM3 130-400 02/16/2016 4:32am 02/16/2016 5:13am Mean Platelet Volume 10.7 UM3 9.4-12.4 02/16/2016 4:32am 02/16/2016 5: 13am Prothromb Time International Ratio 1.02 0.99-1.21 02/16/2016 4:32am 02/16/2016 7:24am THERAPUTIC RANGE=2.00-3.00 FOR ANTI-THROMBOSIS THERAPUTIC RANGE=2.50-3.50 FOR IMPLANTED VALVE Icterus Index < 2 0-7 02/16/2016 4:32am 02/16/2016 5:25am Chemistry Specimen Hemolysis < 15 0-25 02/16/2016 4:32am 02/16/2016 5 :25am 0-25: Specimen Exhibited No Hemolysis. Turbidity < 20 0-20 02/16/2016 4:32am 02/16/2016 5:25am Sodium Level 138 MEQ/L 134-144 02/16/2016 4:32am 02/16/2016 5:25am Potassium Level 4.2 MEQ/L 3.6-5 02/16/2016 4:32am 02/16/2016 5:25am Chloride Level 99 MEQ/L 98-107 02/16/2016 4:32am 02/16/2016 5:25am Carbon Dioxide Level 29 MEQ/L 22-30 02/16/2016 4:32am 02/16/2016 5: 25am Anion Gap 10 MEQ/L 5-15 02/16/2016 4:32am 02/16/2016 5:25am Blood Urea Nitrogen 14.0 MG/DL 7-17 02/16/2016 4:32am 02/16/2016 5: 25am Creatinine 0.6 MG/DL L 0.7-1.2 02/16/2016 4:32am 02/16/2016 5:25am BUN/Creatinine Ratio 23 RATIO 6-26 02/16/2016 4:32am 02/16/2016 5:25am Glomerular Filtration Rate Calc 99 02/16/2016 4:32am 02/16/2016 5: 25am Glucose Level 106 MG/DL 65-110 02/16/2016 4:32am 02/16/2016 5:25am Calculated Osmolality 267 MOSM/KG 261-280 02/16/2016 4:32am 02/16/2016 5:25am Calcium Level 8.7 MG/DL 8.4-10.2 02/16/2016 4:32am 02/16/2016 5:25am Name: MATT CRONIN Unit #: [id number] : 1945 Sex: F Admit Date: 02/14/16 Loc / Svc: SRG Discharge Date: DIAGNOSTIC IMAGING REPORT Report #: [id number] [place], [place] Indication: ITS.REASON: POSTOP left knee replacement PROCEDURE: KNEE LEFT 2 VIEW: Encounter: Initial Comparison: January 14, 2015 Findings: Postoperative changes of left total knee replacement are seen. There is expected postoperative subcutaneous gas. No evidence of hardware failure or acute fracture. No retained radiopaque surgical instruments or sponges. Overlying material causing artifact. Impression: New left total knee prosthesis without evidence of immediate complication. . Procedures Procedure Status Date Provider(s) EGD BIOPSY SINGLE/MULTIPLE Completed 12/27/15 WILLIAM KING MD, FACS, CWS CULTURE SCREEN ONLY Completed 12/27/15 TISSUE EXAM BY PATHOLOGIST Completed 12/27/15 [id number]"RINGERS LACTATE INFUSION, UP TO 1000 CC" Completed 12/27/15 Total replacement of left knee joint Completed 02/14/16 HIGINIO MURILLO MD Encounters Encounter Location Arrival/Admit Date Discharge/Depart Date Attending Provider Discharged Inpatient [facility] 02/14/16 8:04am 02/16/16 5:33pm HIGINIO MURILLO MD Departed Surgical Day Care [facility] 12/27/15 8:28am 12/27/15 2: 03pm WILLIAM KING FACS CWS MD
--- OUTSIDE RECORDS SUMMARY | 2016-08-12 02:11 | XMS REPORT | Continuity of Care Document ---
Author Author [facility] Organization [facility] Address Unknown Phone Unavailable Support Name Relationship Address Phone KARO EDGE MD Caregiver [facility] [address] [place] [address] Unavailable DELORIS GARLAND MD Caregiver [address], [place] [phone] PRICILLA CASAREZ Next Of Kin [address] [place], [place] [id number] Insurance Providers Payer Name Policy Number Subscriber Name Relationship [facility] [id number] Matt Cronin 19 Self Advance Directives Directive Response Recorded Date/Time Ordered Resuscitation Status Full Code 08/19/13 5:46pm Problems Medical Problems Problem Onset Date Status Corneal abrasion Unknown Active Eye Pain Unknown Active Minor head injury Unknown Active Superficial laceration Unknown Active Contusion of nose Unknown Active Minor head injury Unknown Active Abdominal pain Unknown Active Abdominal pain Unknown Active Medications Medication Dose Route Sig Days/Qty Instructions Order Date Discontinued Date Status Sucralfate 1 G PO FOUR TIMES DAILY 11/15/08 08/07/09 Discontinued Fexofenadine Hcl 60 Mg PO TWICE A DAY 11/15/08 08/07/09 Discontinued Spironolactone 12.5 07/02/09 08/07/09 Discontinued Fexofenadine Hcl NEEDED 08/07/09 01/13/11 Discontinued Amitriptyline Hcl 5 Mg PO BEDTIME 08/07/09 08/21/11 Discontinued Esomeprazole Mag Trihydrate 1 DAILY 08/07/09 09/09/10 Discontinued [Altace] 06/24/09 08/07/09 Discontinued Fish Oil/[place]-3 Fatty Acids 1 Cap PO TWICE A DAY 08/07/09 09/09/10 Discontinued Cyclobenzaprine Hcl 10 Mg PO NEEDED 07/02/09 08/07/09 Discontinued Ramipril 08/07/09 09/09/10 Discontinued Chlorzoxazone 08/07/09 09/09/10 Discontinued Ramipril 5 Mg PO DAILY 09/09/10 01/13/11 Discontinued Fexofenadine Hcl 60 Mg PO DAILY 01/13/11 08/13/12 Discontinued Omeprazole 40 Mg PO DAILY 08/21/11 08/13/12 Discontinued Calcium Carbonate/Vitamin D3 1 Tab PO DAILY 08/21/11 08/13/12 Discontinued Calcium Carbonate 600 Mg PO DAILY 2 Qty 08/21/11 08/13/12 Discontinued Fish Oil/[place]-3 Fatty Acids 1 Cap PO DAILY 08/21/11 08/13/12 Discontinued Ascorbic Acid 1,000 Mg PO DAILY 08/13/12 07/17/13 Discontinued Cholecalciferol 1,000 Unit PO DAILY 08/13/12 Active Calcium Carbonate 1 Tab PO DAILY 08/19/13 Active Lisinopril 10 Mg PO BEDTIME 08/19/13 Active Esomeprazole Mag Trihydrate 40 Mg PO DAILY 08/22/13 Active Hydrocodone Bit/Acetaminophen 1 Tab PO .5 tabprn 08/22/13 Active Clidinium Br/Chlordiazepoxide 1 Cap PO 10/24/13 Active Cephalexin Monohydrate 500 Mg PO THREE TIMES A DAY 30 Qty 10/25/13 Active Social History Social History Problem Response Recorded Date/Time Smoking Status Never smoker 10/24/2013 11:25pm Chewing Tobacco Status No 10/24/2013 11:25pm Hx Substance Use No 10/24/2013 11:25pm Hx Alcohol Use No 10/24/2013 11:25pm Has the pt used tobacco in the last 12 months No 08/19/2013 5:06pm Query Response Start Date Stop Date Smoking Status Former smoker Hospital Discharge Instructions No hospital discharge instructions. Plan of Care No plan of care. Functional Status Query Response Date Recorded Physical Hygiene Self October 24, 2013 11:25pm Devices Used Dentures Glasses October 24, 2013 11:25pm Dressing Self October 24, 2013 11:25pm Ambulation Self October 24, 2013 11:25pm Diet Self October 24, 2013 11:25pm Mental Status Alert October 25, 2013 1:37am Devices Used Dentures Glasses October 24, 2013 11:25pm Physical Hygiene Self October 24, 2013 11:25pm Dressing Self October 24, 2013 11:25pm Ambulation Self October 24, 2013 11:25pm Diet Self October 24, 2013 11:25pm Allergies, Adverse Reactions, Alerts Allergen Type Severity Reaction Status Last Updated NSAIDS (Non-Steroidal Anti-Inflamma Adverse Reaction Unknown HISTORY OF STOMACH LESIONS Active 07/17/13 Sulfa (Sulfonamide Antibiotics) Allergy Unknown N/V, BODY ACHES Active 10/31 Codeine Allergy Unknown CHEST PAIN Active 10/24/13 Aspirin Adverse Reaction Mild hx ulcers Active 10/24/13 Pantoprazole Adverse Reaction Unknown HURTS HER STOMACH Active 07/17/13 Levofloxacin Allergy Unknown N/V Active 10/24/13 Immunizations Name Given Type Hx Influenza Vaccination Y FALL 2012 Historical Hx Pneumococcal Vaccination Y 20 YRS AGO Historical Hx Tetanus, Diptheria, Pertussis Y 2 1/2 YEARS AGO Historical Hx Influenza Vaccination Y FALL 2012 Historical Hx Tetanus Diptheria N MORE THAN 10 YEARS Historical Hx Tetanus, Diptheria, Pertussis Y 2 1/2 YEARS AGO Historical Vital Signs Acute Vital Signs Vital Response Date/Time Temperature (Fahrenheit) 97.6 deg F (96.8 - 99.1) Temperature (Calculated Celsius) 36.36026 degrees C (36.0 - 37.3) Pulse Rate (adult) 75 bpm (60 - 100) Respiratory Rate 17 breaths/min (10 - 20) O2 Sat by Pulse Oximetry 96 % (90 - 100) Oxygen Flow Rate 6.00 L/min Blood Pressure 117/59 mm Hg Height 5 ft 6 in Weight 210 lb Body Mass Index 33.0 kg/m^2 Results Test Source Date Result Interp. Ref. Range Comments Activated Partial Thromboplast Time January 13, 2011 9:39pm 28.7 SEC N 24-36 Alanine Aminotransferase (ALT/SGPT) October 24, 2013 10:25pm 34 U/L N 9-52 Albumin October 24, 2013 10:25pm 4.1 G/DL N 3.5-5.0 Albumin/Globulin Ratio October 24, 2013 10:25pm 1.4 RATIO N 1.1-2.2 Alkaline Phosphatase October 24, 2013 10:25pm 107 U/L N 38-126 Amylase Level October 24, 2013 10:25pm 53 U/L N 30-110 Anion Gap October 24, 2013 10:25pm 11 MEQ/L N 5-15 Aspartate Amino Transf (AST/SGOT) October 24, 2013 10:25pm 31 U/L N 14-36 B-Type Natriuretic Peptide January 13, 2011 9:39pm < 15 PG/ML L 15- 100 BUN/Creatinine Ratio October 24, 2013 10:25pm 20 RATIO N 6-26 Band Neutrophils # April 13, 2009 6:45pm 0.1 T/MM3 - Band Neutrophils % April 13, 2009 6:45pm 1.0 % N 0-6 Basophils # (Auto) October 24, 2013 10:25pm 0.1 T/MM3 N 0-0.2 Basophils # (Manual) April 13, 2009 6:45pm 0.1 T/MM3 N 0-0.2 Basophils % (Manual) April 13, 2009 6:45pm 1.0 % N 0-2 Basophils (%) (Auto) October 24, 2013 10:25pm 0.8 % N 0-2 Blood Urea Nitrogen October 24, 2013 10:25pm 12.0 MG/DL N 7-17 Calcium Level October 24, 2013 10:25pm 9.3 MG/DL N 8.4-10.2 Calculated Osmolality October 24, 2013 10:25pm 269 MOSM/KG N 261-280 Carbon Dioxide Level October 24, 2013 10:25pm 26 MEQ/L N 22-30 Chloride Level October 24, 2013 10:25pm 103 MEQ/L N 98-107 Conjugated Bilirubin January 13, 2011 9:39pm 0.00 MG/DL N 0.00-0.30 Creatinine October 24, 2013 10:25pm 0.6 MG/DL L 0.7-1.2 Eosinophils # (Auto) October 24, 2013 10:25pm 0.2 T/MM3 N 0-0.5 Eosinophils # (Manual) April 13, 2009 6:45pm 0.1 T/MM3 N 0-0.5 Eosinophils % (Manual) April 13, 2009 6:45pm 1.0 % N 0-4 Eosinophils (%) (Auto) October 24, 2013 10:25pm 3.0 % N 0-4 Globulin October 24, 2013 10:25pm 2.9 G/DL N 2.4-3.6 Glucose Level October 24, 2013 10:25pm 93 MG/DL N 65-110 Hematocrit October 24, 2013 10:25pm 39.0 % N 36-46 Hemoglobin October 24, 2013 10:25pm 13.1 GM/DL N 12-16 Lipase October 24, 2013 10:25pm 66 U/L N 23-300 Lymphocytes # (Auto) October 24, 2013 10:25pm 2.5 T/MM3 N 1-4.8 Lymphocytes # (Manual) April 13, 2009 6:45pm 3.2 T/MM3 N 1-4.8 Lymphocytes % (Manual) April 13, 2009 6:45pm 31.0 % N 23-45 Lymphocytes (%) (Auto) October 24, 2013 10:25pm 34.2 % N 23-45 Mean Corpuscular Hemoglobin October 24, 2013 10:25pm 29.6 UUG N 26-34 Mean Corpuscular Hemoglobin Concent October 24, 2013 10:25pm 33.6 GM/DL N 31-37 Mean Corpuscular Volume October 24, 2013 10:25pm 88.2 UM3 N 80-100 Mean Platelet Volume October 24, 2013 10:25pm 10.2 UM3 N 9.4-12.4 Monocytes # (Auto) October 24, 2013 10:25pm 0.8 T/MM3 N 0-0.8 Monocytes # (Manual) April 13, 2009 6:45pm 1.2 T/MM3 H 0-0.8 Monocytes % (Manual) April 13, 2009 6:45pm 12.0 % H 0-9.0 Monocytes (%) (Auto) October 24, 2013 10:25pm 11.5 % H 0-9.0 Neutrophils # (Auto) October 24, 2013 10:25pm 3.6 T/MM3 N 1.8-7.7 Neutrophils # (Manual) April 13, 2009 6:45pm 5.5 T/MM3 N 1.8-7.7 Neutrophils % (Manual) April 13, 2009 6:45pm 54.0 % N 33-66 Neutrophils (%) (Auto) October 24, 2013 10:25pm 50.4 % N 33-66 Platelet Count October 24, 2013 10:25pm 311 T/MM3 N 130-400 Potassium Level October 24, 2013 10:25pm 4.2 MEQ/L N 3.6-5 Prothromb Time International Ratio January 13, 2011 9:39pm 0.95 N 0.86 -1.10 THERAPUTIC RANGE=2.00-3.00 FOR ANTI-THROMBOSIS THERAPUTIC RANGE=2.50- 3.50 FOR IMPLANTED VALVE RDW Standard Deviation October 24, 2013 10:25pm 40.7 FL N 36.9-50.2 Red Blood Count October 24, 2013 10:25pm 4.42 M/MM3 N 4.00-5.20 Sodium Level October 24, 2013 10:25pm 140 MEQ/L N 134-144 Tests Not Done April 13, 2009 7:10pm Not done - Has specimen been collected/obtained? Y Thyroid Stimulating Hormone (TSH) January 13, 2011 9:39pm 5.10 MIU/L H 0.47-4.68 Total Bilirubin October 24, 2013 10:25pm 0.50 MG/DL N 0.20-1.30 Total Protein October 24, 2013 10:25pm 7.0 G/DL N 6.3-8.2 Troponin I October 24, 2013 10:25pm < 0.012 ng/ml 0-0.12 Unconjugated Bilirubin January 13, 2011 9:39pm 0.20 MG/DL N 0.00-1.10 Urine Bacteria October 24, 2013 11:20pm None seen - Has specimen been collected/obtained? Y Urine Bilirubin October 24, 2013 11:20pm Negative - Has specimen been collected/obtained? Y Urine Blood October 24, 2013 11:20pm Negative - Has specimen been collected/obtained? Y Urine Collection Type October 24, 2013 11:20pm Cleancatch-midstream - Has specimen been collected/obtained? Y Urine Color October 24, 2013 11:20pm Yellow - Has specimen been collected/obtained? Y Urine Glucose (UA) October 24, 2013 11:20pm Negative - Has specimen been collected/obtained? Y Urine Ketones October 24, 2013 11:20pm Negative - Has specimen been collected/obtained? Y Urine Leukocyte Esterase October 24, 2013 11:20pm 2+ H - Has specimen been collected/obtained? Y Urine Nitrite October 24, 2013 11:20pm Negative - Has specimen been collected/obtained? Y Urine Protein October 24, 2013 11:20pm Negative - Has specimen been collected/obtained? Y Urine RBC October 24, 2013 11:20pm None seen /HPF - Has specimen been collected/obtained? Y Urine Specific [place] October 24, 2013 11:20pm <=1.005 L - Has specimen been collected/obtained? Y Urine Squamous Epithelial Cells October 24, 2013 11:20pm 0-5 - Has specimen been collected/obtained? Y Urine Turbidity October 24, 2013 11:20pm Clear - Has specimen been collected/obtained? Y Urine Urobilinogen October 24, 2013 11:20pm 0.2 EU/DL - Has specimen been collected/obtained? Y Urine WBC October 24, 2013 11:20pm 10-20 /HPF H - Has specimen been collected/obtained? Y Urine pH October 24, 2013 11:20pm 7.0 - Has specimen been collected/ obtained? Y White Blood Count October 24, 2013 10:25pm 7.2 T/MM3 N 4.5-11.0 Chemistry Specimen Hemolysis October 24, 2013 10:25pm 92 H 0-25 0-25: No Hemolysis.26-70: Slight Hemolysis - can falsely elevate K and Urine Protein. 71-285: Moderate Hemolysis - can falsely elevate K, Troponin I, CA 19-9, PTH, CSF GLucose, and Urine Protein, and can falsely decrease Phenytoin. 286-999: Gross Hemolysis - can falsely elevate K, Troponin I, CA 19-9, PTH, CSF Glucose, and Urine Protine, and can falsely decrease Phenytoin. Recommend specimen recollection. EKG April 22, 2009 9:41pm Complete - Turbidity October 24, 2013 10:25pm < 20 0-20 Glomerular Filtration Rate Calc October 24, 2013 10:25pm 100 - Immature Granulocyte # (Auto) October 24, 2013 10:25pm 0.01 T/MM3 N 0.00- 0.03 Immature Granulocyte % (Auto) October 24, 2013 10:25pm 0.1 % N 0.0-0.5 Icterus Index October 24, 2013 10:25pm < 2 0-7 Procedures Procedure Status Date Provider(s) EGD BIOPSY SINGLE/MULTIPLE completed 08/22/13 WILLIAM KING MD, FACS, CWS Encounters Encounter Location Date/Time Departed Emergency Room [facility] 10/24/13 9:32pm Recent Diagnosis
--- OUTSIDE RECORDS SUMMARY | 2016-08-12 02:11 | XMS REPORT | Continuity of Care Document ---
Author Author [facility] Organization [facility] Address Unknown Phone Unavailable Support Name Relationship Address Phone DELORIS GARLAND MD Caregiver [address] [place] [phone] ARELI LUCAS MD Caregiver [address] [place] [address] PRICILLA CASAREZ Next Of Kin [address] [place] [address] Insurance Providers Payer Name Policy Number Subscriber Name Relationship [facility] [id number] Matt Cronin 19 Self Advance Directives Directive Response Recorded Date/Time Advanced Directives Type None 06/26/14 5:52pm Ordered Resuscitation Status Full Code 08/19/13 5:46pm Problems Medical Problems Problem Onset Date Status Corneal abrasion Unknown Active Eye Pain Unknown Active Minor head injury Unknown Active Superficial laceration Unknown Active Contusion of nose Unknown Active Minor head injury Unknown Active Abdominal pain Unknown Active Abdominal pain Unknown Active Shingles Unknown Active Shingles Unknown Active Medications Medication Dose Route Sig Days/Qty Instructions Order Date Discontinued Date Status Sucralfate 1 G PO FOUR TIMES DAILY 11/15/08 08/07/09 Discontinued Fexofenadine Hcl 60 Mg PO TWICE A DAY 11/15/08 08/07/09 Discontinued Spironolactone 12.5 07/02/09 08/07/09 Discontinued Fexofenadine Hcl NEEDED 08/07/09 01/13/11 Discontinued Martinatriptyline Hcl 5 Mg PO BEDTIME 08/07/09 08/21/11 Discontinued Esomeprazole Mag Trihydrate 1 DAILY 08/07/09 09/09/10 Discontinued [Altace] 06/24/09 08/07/09 Discontinued Fish Oil/[place]-3 Fatty Acids 1 Cap PO TWICE A [...] DAILY 2 Qty 08/21/11 08/13/12 Discontinued Fish Oil/[place]-3 Fatty Acids 1 Cap PO DAILY 08/21/11 08/13/12 Discontinued Ascorbic Acid 1,000 Mg PO DAILY 08/13/12 07/17/13 Discontinued Cholecalciferol 1,000 Unit PO DAILY 08/13/12 Active Calcium Carbonate 1 Tab PO DAILY 08/19/13 Active Lisinopril 5 Mg PO DAILY 08/19/13 Active Esomeprazole Mag Trihydrate 40 Mg PO DAILY 08/22/13 Active Hydrocodone Bit/Acetaminophen 1 Tab PO .5 tabprn 08/22/13 Active Clidinium Br/Chlordiazepoxide 1 Cap PO 10/24/13 Active Hydrocodone/Acetaminophen 1-2 Tab PO Every 6 Hours PRN PAIN 30 Qty 01/02 Active Acyclovir 1 Tab PO 5 TIMES DAILY 7 Days 06/26/14 Active Social History Social History Problem Response Recorded Date/Time Chewing Tobacco Status No 10/24/2013 11:25pm Hx Substance Use No 06/26/2014 5:56pm Hx Alcohol Use No 06/26/2014 5:56pm Has the pt used tobacco in the last 12 months No 08/19/2013 5:06pm Tobacco Usage none 10/24/2013 10:58pm Query Response Start Date Stop Date Smoking Status Never smoker Hospital Discharge Instructions No hospital discharge instructions. Plan of Care No plan of care. Functional Status Query Response Date Recorded Physical Hygiene Self June 26, 2014 5:56pm Disabilities None June 26, 2014 5:56pm Devices Used Dentures June 26, 2014 5:56pm Dressing Self June 26, 2014 5:56pm Ambulation Self October 24, 2013 11:25pm Diet Self June 26, 2014 5:56pm Mental Status Alert October 25, 2013 1:37am Disabilities None June 26, 2014 5:56pm Devices Used Dentures June 26, 2014 5:56pm Physical Hygiene Self June 26, 2014 5:56pm Dressing Self June 26, 2014 5:56pm Ambulation Self October 24, 2013 11:25pm Diet Self June 26, 2014 5:56pm Allergies, Adverse Reactions, Alerts Allergen Type Severity [...] Name Given Type Hx Influenza Vaccination Y 01/31 Historical Hx Pneumococcal Vaccination Y 20 YRS AGO Historical Hx Tetanus, Diptheria, Pertussis Y 2 1/2 YEARS AGO Historical Hx Influenza Vaccination Y 01/31 Historical Hx Tetanus Diptheria N MORE THAN 10 YEARS Historical Hx Tetanus, Diptheria, Pertussis Y 2 1/2 YEARS AGO Historical Vital Signs Acute Vital Signs Vital Response Date/Time Temperature (Fahrenheit) 97.8 deg F (96.8 - 99.1) Temperature (Calculated Celsius) 36.54687 degrees C (36.0 - 37.3) Pulse Rate (adult) 85 bpm (60 - 100) Respiratory Rate 16 breaths/min (10 - 20) O2 Sat by Pulse Oximetry 100 % (90 - 100) Blood Pressure 172/86 mm Hg Height 5 ft 6 in Weight 209 lb Body Mass Index 33.0 kg/m^2 Results Test Source Date Result Interp. Ref. Range Comments Lab Scanned Report November 01, 2013 2:09pm LAB RESULTS - SCANNED - Activated Partial Thromboplast Time January 13, 2011 [...] Has specimen been collected/obtained? Y Urine Specific [place] October 24, 2013 11:20pm <=1.005 L - [...] October 24, 2013 10:25pm < 2 0-7 Urine Culture Urine, Clean Catch-Midstream October 24, 2013 11:20pm Strep Agalactiae - (Group B) Procedures No known history of procedures. Encounters Encounter Location Date/Time Registered Emergency Room [facility] 06/26/14 5:48pm Recent Diagnosis
--- NOTE | 2016-08-12 02:25 | NUR ---
XR IMAGING IN ROOM FOR PORTABLE CXR AT THIS TIME.
[2016-08-12 02:28] LABS: BASOPHILS % (AUTO) 0.5 % (0-2); EOSINOPHILS # (AUTO) 0.3 T/MM3 (0-0.5); EOSINOPHILS % (AUTO) 3.1 % (0-4); HCT - HEMATOCRIT 37.9 % (36-46); HGB - HEMOGLOBIN 12.7 GM/DL (12-16); IMMATURE GRANULOCYTE # (AUTO) 0.01 T/MM3 (0.00-0.03); IMMATURE GRANULOCYTE % (AUTO) 0.1 % (0.0-0.5); LYMPHOCYTES # (AUTO) 2.7 T/MM3 (1-4.8); LYMPHOCYTES % (AUTO) 33.7 % (23-45); MEAN CORPUSCULAR HGB 29.3 UUG (26-34); MEAN CORPUSCULAR HGB CONC(MCHC 33.5 GM/DL (31-37); MEAN CORPUSCULAR VOLUME 87.5 UM3 (80-100); MEAN PLATELET VOLUME 10.2 UM3 (9.4-12.4); MONOCYTES # (AUTO) 0.7 T/MM3 (0-0.8); MONOCYTES % (AUTO) 9.1 % (0-9.0); NEUTROPHILS #(AUTO)-ABSOLUTE 4.3 T/MM3 (1.8-7.7); NEUTROPHILS % (AUTO) 53.5 % (33-66); RED BLOOD COUNT 4.33 M/MM3 (4.00-5.20)
--- NOTE | 2016-08-12 02:28 | ERPDOC ---
Departure Disposition Decision Date: Aug 12, 2016 Disposition Decision Time: 03:05 Disposition: 01 DISCHARGED HOME, SELF-CARE Impression Impression Impression: Primary Impression: Esophageal spasm Additional Impressions: GERD (gastroesophageal reflux disease) Esophagitis presence: with esophagitis Qualified Codes: K21.0 - Gastro- esophageal reflux disease with esophagitis Barretts esophagus Rivas's esophagus type: with dysplasia of unspecified degree Qualified Codes: K22.719 - Rivas's esophagus with dysplasia, unspecified Severity: Severe Condition: Improved Seen By: Physician only Referrals: DELORIS GARLAND MD (Family) Patient Instructions: Esophageal Spasm (ED) Problems/Meds/Labs Reviewed?: Yes Medications reviewed and manag: Yes Additional Instructions: Take Nexium once daily every day, or not at all Pepcid 20 mg, 2 tablets daily for one week, then as needed for stomach symptoms Reglan 10 mg one tablet every 6-8 hours as needed for nausea, cramps, or spasms in the stomach/esophagus See your doctor later this week for any ongoing symptoms or return to ER for any worsening Follow up care ordered?: Yes Mental Status: Alert Scripts Famotidine (Pepcid) 20 Mg Tablet 40 MG PO DAILY, #60 TAB 0 Refills Prov: KARO EDGE MD 08/12/16 Metoclopramide HCl (Reglan) 10 Mg Tablet 10 MG PO QID Y for n/v/esophageal spasms, #30 TAB 0 Refills Prov: KARO EDGE MD 08/12/16 HPI - Chest Pain General Stated Complaint: CP,BACK PAIN,LEFT ARM PAIN Time Seen by Provider: 02:07 Source: patient, family Exam Limitations: no limitations HPI - Chest Pain Initial Comments Patient has had fluctuating epigastric and left upper quadrant abdominal pain with central substernal chest pain radiating to the left shoulder left neck and left jaw for the past 4 days. Symptoms have waxed and waned, but tonight became worse 3-4 hours ago. Patient has a history of severe GERD with fundoplication. Patient does have parents esophagus and continues to have episodes of esophageal spasms. Seem as when necessary only, and when her symptoms started on Thursday she restarted her Nexium, but notices that her symptoms do not significantly improve for 2 days. She has mild hypertension, takes metoprolol when necessary, no high cholesterol , and to her knowledge has never had a heart attack or stroke Occurred At: home Onset/Timing: Rapid Location: substernal, abdomen Quality: aching, burning Chest Pain Radiation: jaw, neck, shoulders Nitro Today/Relief: provided by ED Aspirin Treatment Today: contraindicated Prior Chest Pain/Cardiac Luc: non-cardiac Hx of Similar Symptoms: Yes Allergies: Coded Allergies: codeine (Verified Allergy, Unknown, CHEST PAIN, 08/12/16) ibuprofen (Verified Adverse Reaction, Intermediate, LEG SWELLING, 08/12/16) aspirin (Verified Adverse Reaction, Mild, hx ulcers, 08/12/16) NSAIDS (Non-Steroidal Anti-Inflamma (Verified Adverse Reaction, Unknown, HISTORY OF STOMACH LESIONS, 08/12/16) Sulfa (Sulfonamide Antibiotics) (Verified Adverse Reaction, Unknown, N/V, BODY ACHES, 08/12/16) cephalexin (Verified Adverse Reaction, Unknown, BODY ACHES PER H&P, ) levofloxacin (Verified Adverse Reaction, Unknown, N/V, 08/12/16) Past History Patient Medical History Problem List Updates: Rivas's esophagus Past Medical History Metabolic: hypertension ENMT: allergies Hx Echocardiogram: No GI: GERD, other Musculoskeletal: back pain, osteoarthritis Integumentary: other Surgical History General: gallbladder, other, tonsils Reproductive/: hysterectomy Joint: knee Family History Family PMH: FOUND: [place], asthma, diabetes Vaccines Hx Influenza Vaccination: Yes (02-02) Hx Pneumococcal Vaccination: Yes (02/01) Hx Tetanus Diptheria: No (MORE THAN 10 YEARS) Social History Smoking Status: Never smoker Does patient use chewing tobac: No Second Hand Exposure: No Substance Use Type: does not use Alcohol Intake: none Review of Systems Constitutional Constitutional: DENIES: appetite decrease, appetite increase, chills, dizziness , fever, weakness ENMT Ears: DENIES: pain Hearing: DENIES: hearing loss, tinnitus Balance: DENIES: vertigo Mouth/Throat: DENIES: change in swallowing, change in voice, hoarsness, painful swallowing, sore throat Cardiovascular Cardiac: chest pain, DENIES: dyspnea on exertion Rhythm/Rate: DENIES: irregular beat, palpitations, tachycardia Vascular: DENIES: pedal edema Pulmonary Respiratory: DENIES: cough, dyspnea, pleuritic chest pain GI Upper Abdomen: pain, DENIES: dysphagia, food intolerances, heartburn/ indigestion, hematemesis, nausea, vomiting Lower Abdomen: DENIES: blood in stool, jeffery-colored stools, constipation, diarrhea, melena, pain, painful BM General: DENIES: burning, dysuria, frequency, pain, urgency Musculoskeletal General: DENIES: cramps, joint pain, joint swelling, pain, weakness Integumentary Skin: DENIES: rash, sores Neurological General: DENIES: headache, numbness, tingling, vertigo, weakness Psychiatric Psychiatric: DENIES: anxiety, depression, nervousness Physical Exam General General Nourishment: well nourished, well developed, appears stated age General Body Habitus: well groomed Vitals and Pain Weight: Kilograms: Height (feet): 5 Height (inches): 6.00 Triage Pain Scale: RN VS reviewed by Provider: Yes Normal Exams: Head: Normocephalic w/o trauma Eyes: Pupils are PERRLA w/ EOMI, No scleral icterus, irritation, or foreign bodies noted ENMT: No facial trauma, nasal exudates, pharyngeal erythema, or exudates are noted Neck: Full range of motion, without adenopathy, JVD, bruits or thyromegaly Chest/Resp: Clear all ramírez, with good airflow, and symmetry bilaterally CV: Regular rate and rhythm, without murmur or gallop, Pulses 2+ all extremities, capillary refill, <2 seconds all ext., no pedal edema noted Lymphatic: No lymphadenopathy, or lymphedema noted Musculoskeletal: No tenderness, or deformity noted, good range of motion, all extremities Integumentary: No rashes, hives, or bruising noted, hair and nails, without abnormality Neurologic: Patient is alert, and oriented, cranial nerves, motor/sensory/ cerebellar, exams w/o gross deficits, to observation Psychiatric: Patient exhibits, appropriate attention, emotion and affect Abdomen (brief) Abdominal Brief: FOUND: bowel normo active x4, soft, tender (moderate epigastric tenderness and no guarding no rebounding), NOT FOUND: distended, hepatosplenomegaly, pulsatile mass Progress Results/Orders Orders Procedure Category Date Status Time Iv Lock (Ed Only) EDM 08/12/16 Transmitted 02:16 Cbc W/Auto LAB 08/12/16 Complete Diff-Reflex Manual Cmp - Comprehensive LAB 08/12/16 Complete Metabolic Lipase LAB 08/12/16 Complete EKG EKG 08/12/16 Logged Troponin I W LAB 08/12/16 Complete Hemolysis Index Chest 1 View RAD 08/12/16 Taken Nitroglycerin PHA 08/12/16 In Process (Nitrostat) 02:30 Metoclopramide PHA 08/12/16 Complete (Reglan Inj) 02:30 Ranitidine (Zantac) PHA 08/12/16 Complete 02:30 Normal Saline (Normal PHA 08/12/16 Complete Saline Iv) 02:30 Fentanyl (Fentanyl) PHA 08/12/16 In Process 02:30 Lab Results Laboratory Tests Test 08/12/16 02:20 White Blood Count 8.0T/MM3 Red Blood Count 4.33M/MM3 Hemoglobin 12.7GM/DL Hematocrit 37.9% Mean Corpuscular Volume 87.5UM3 Mean Corpuscular Hemoglobin 29.3UUG Mean Corpuscular Hemoglobin Concent 33.5GM/DL RDW Standard Deviation 40.4FL Platelet Count 271T/MM3 Mean Platelet Volume 10.2UM3 Immature Granulocyte % (Auto) 0.1% Neutrophils (%) (Auto) 53.5% Lymphocytes (%) (Auto) 33.7% Monocytes (%) (Auto) 9.1% Eosinophils (%) (Auto) 3.1% Basophils (%) (Auto) 0.5% Absolute Immature Granulocyte (auto 0.01T/MM3 Absolute Neutrophils (auto) 4.3T/MM3 Absolute Lymphocytes (auto) 2.7T/MM3 Absolute Monocytes (auto) 0.7T/MM3 Absolute Eosinophils (auto) 0.3T/MM3 Absolute Basophils (auto) 0.0T/MM3 Turbidity < 20 Sodium Level 143MEQ/L Potassium Level 3.6MEQ/L Chloride Level 103MEQ/L Carbon Dioxide Level 27MEQ/L Anion Gap 13MEQ/L Blood Urea Nitrogen 10.0MG/DL Creatinine 0.7MG/DL Glomerular Filtration Rate Calc 83 BUN/Creatinine Ratio 14RATIO Glucose Level 101MG/DL Calculated Osmolality 274MOSM/KG Calcium Level 9.1MG/DL Total Bilirubin 0.60MG/DL Icterus Index < 2 Aspartate Amino Transf (AST/SGOT) 26U/L Alanine Aminotransferase (ALT/SGPT) 42U/L Alkaline Phosphatase 88U/L Troponin I < 0.012ng/ml Total Protein 6.7G/DL Albumin 3.9G/DL Globulin 2.8G/DL Albumin/Globulin Ratio 1.4RATIO Lipase 79U/L Chemistry Specimen Hemolysis < 15 Medications Current ED Medications Nitroglycerin (Nitrostat) 0.4 mg Q5MIN PRN SL CHEST PAIN; Start 08/12/16 at 02: 30 Metoclopramide HCl (REGLAN Inj) 10 mg O ONCE IV Last administered on 02:33; Start 08/12/16 at 02:30; Stop 08/12/16 at 02:31; Status DC Ranitidine HCl 300 mg 300 mg O ONCE PO Last administered on 08/12/16 02:33; Start 08/12/16 at 02:30; Stop 08/12/16 at 02:31; Status DC Sodium Chloride (Normal Saline IV) 1,000 ml @ 0 mls/hr Q0M ONCE IV Last administered on 08/12/16 02:32; Start 08/12/16 at 02:30; Stop 08/12/16 at 02:31 ; Status DC Fentanyl (Fentanyl) 50 mcg O PRN IV ; Start 08/12/16 at 02:30 Progress Progress Patient given nitroglycerin sublingually, Reglan 10 mg IV, Zantac 300 milligrams by mouth, and 1 L normal saline IV fluid bolus with 50 g of fentanyl when necessary - to significant relief, patient declined fentanyl EKG showed a normal sinus rhythm without ischemia, ectopy, or infarction CBC - n CMP/L - n Troponin - n CXR - n KARO EDGE MD Aug 12, 2016 02:28
[2016-08-12] MEDS ORDERED: NORMAL SALINE 1,000 ML IV ONE (02:30)
[2016-08-12] MEDS ORDERED: FENTANYL 100mcg/2ml INJECTION IV PRN (02:30)
[2016-08-12] MEDS ORDERED: NITROGLYCERIN 0.4 MG SUBLINGUAL TABLET SL PRN (02:30)
[2016-08-12] MEDS ORDERED: METOCLOPRAMIDE 10mg/2ml INJECTION IV ONE (02:30)
[2016-08-12] MEDS ORDERED: RANITIDINE 150 MG TABLET PO ONE (02:30)
[2016-08-12 02:36] LABS: ALBUMIN 3.9 G/DL (3.5-5.0); ALBUMIN/GLOBULIN RATIO 1.4 RATIO (1.1-2.2); ALKALINE PHOSPHATASE 88 U/L (38-126); ALT (SGPT) 42 U/L (9-52); ANION GAP 13 MEQ/L (5-15); AST (SGOT) 26 U/L (14-36); BUN/CREATININE RATIO 14 RATIO (6-26); CALCIUM 9.1 MG/DL (8.4-10.2); CHLORIDE 103 MEQ/L (98-107); CO2 - CARBON DIOXIDE 27 MEQ/L (22-30); CREATININE 0.7 MG/DL (0.7-1.2); GLOMERULAR FILTRATION RATE 83; GLUCOSE 101 MG/DL (65-110); LIPASE 79 U/L (23-300); POTASSIUM 3.6 MEQ/L (3.6-5); SODIUM 143 MEQ/L (134-144); TOTAL PROTEIN 6.7 G/DL (6.3-8.2)
--- OUTSIDE RECORDS SUMMARY | 2016-08-12 02:41 | XMS REPORT | Continuity of Care Document ---
Author Author [facility] Organization [facility] Address Unknown Phone Unavailable Allergies Medications Problems Procedures Results Encounters ACCT No. Visit Date/Time Discharge Status Pt. Type Provider Facility Loc./Unit Complaint [id number] 07/21/2013 14:13:00 07/21/2013 23 :59:59 CLS Outpatient [id number] 06/20/2013 11:14:00 06/20/2013 23 :59:59 CLS Outpatient [id number] 03/29/2013 11:08:00 03/29/2013 23 :59:59 CLS Outpatient
--- OUTSIDE RECORDS SUMMARY | 2016-08-12 02:42 | XMS REPORT | Continuity of Care Document ---
Author Author [facility] Organization [facility] Address Unknown Phone Unavailable Support Name Relationship Address Phone DELORIS GARLAND MD Caregiver [address] [place] [phone] ARELI LUCAS MD Caregiver [address] [place] [address] PRICILLA CASAREZ Next Of Kin [address] [place] [address] Insurance Providers Payer Name Policy Number Subscriber Name Relationship [facility] [id number] Matt Cronin 19 Self Advance Directives Directive [...] 09/09/10 Discontinued [Altace] 06/24/09 08/07/09 Discontinued Fish Oil/[place]-3 Fatty Acids 1 Cap PO TWICE A [...] DAILY 2 Qty 08/21/11 08/13/12 Discontinued Fish Oil/[place]-3 Fatty Acids 1 Cap PO DAILY 08/21/11 [...] F (96.8 - 99.1) Temperature (Calculated Celsius) 36.06442 degrees C (36.0 - 37.3) Pulse Rate [...] Has specimen been collected/obtained? Y Urine Specific [place] October 24, 2013 11:20pm <=1.005 L - [...] Encounters Encounter Location Date/Time Registered Emergency Room [facility] 06/26/14 5:48pm Recent Diagnosis
--- OUTSIDE RECORDS SUMMARY | 2016-08-12 02:42 | XMS REPORT | Continuity of Care Document ---
Author Author [facility] Organization [facility] Address Unknown Phone Unavailable Support Name Relationship Address Phone KARO EDGE MD Caregiver [facility] [address] [place] [address] Unavailable DELORIS GARLAND MD Caregiver [address] [place], [place] [phone] PRICILLA CASAREZ Next Of Kin [address] [place], [place] [address] Insurance Providers Payer Name Policy Number Subscriber Name Relationship [facility] [id number] Matt Cronin 19 Self Advance Directives Directive [...] 09/09/10 Discontinued [Altace] 06/24/09 08/07/09 Discontinued Fish Oil/[place]-3 Fatty Acids 1 Cap PO TWICE A [...] DAILY 2 Qty 08/21/11 08/13/12 Discontinued Fish Oil/[place]-3 Fatty Acids 1 Cap PO DAILY 08/21/11 [...] F (96.8 - 99.1) Temperature (Calculated Celsius) 36.44993 degrees C (36.0 - 37.3) Pulse Rate [...] Has specimen been collected/obtained? Y Urine Specific [place] October 24, 2013 11:20pm <=1.005 L - [...] Encounters Encounter Location Date/Time Departed Emergency Room [facility] 10/24/13 9:32pm Recent Diagnosis
[2016-08-12] MEDS ORDERED: SUCR1TAB20 PO (02:51)
--- NOTE | 2016-08-12 03:00 | NUR ---
BR PT AMBULATES TO BR AT THIS TIME.
[2016-08-12] MEDS ORDERED: METO-230 PO (03:07)
[2016-08-12] MEDS ORDERED: FAMO-137 PO (03:07)
[2016-08-12 03:43] VITALS: BP 123/60; PULSE 52; RESP 17; TEMP 98.4; O2SAT 96
--- NOTE | 2016-08-12 03:43 | NUR ---
DEPART PT IS DISCHARGED AT THIS TIME, INSTRUCTIONS ARE REVIEWED AND UNDERSTANDING IS VOICED. PT LEAVES AMBULATORY WITH FEMALE.
--- NOTE | 2016-08-12 07:58 | DI ---
Indication: ITS.REASON: left chest pain PROCEDURE: CHEST 1 VIEW: Encounter: Initial Comparison: May 13, 2015 FINDINGS: The lungs are clear. There is no abnormal airspace opacity, pleural effusion or pneumothorax identified. The heart size, pulmonary vasculature and mediastinum are stable. IMPRESSION: No acute cardiopulmonary abnormality. .
== END 2016-08-12 03:43 | disposition home or self-care (01) ==
LOC: ED 02:04
DX: K21.0 Gastro-esophageal reflux disease with esophagitis (principal); K22.719 Barrett's esophagus with dysplasia, unspecified; K22.4 Dyskinesia of esophagus
CPT/HCPCS: 71010; 80053; 83690; 84484; 85025; 93005; 96361; 96374; 99284; A9270; J2765; J7030